=== PATIENT | male | born 2000 | race Caucasian/White ===

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

== ENCOUNTER 2024-02-27 16:05 | Emergency (ER) | payer MEDICAID, SELFPAY ==
[2024-02-27 16:09] VITALS: BP 152/85; PULSE 100; RESP 16; TEMP 36.8; O2SAT 96
--- NOTE | 2024-02-27 16:32 | ED_ITS ---
HPI - URI/Sore Throat General: Chief Complaint: Upper Respiratory Infection Stated Complaint: sore throat, cough Time Seen by Provider: 02/27/24 16:26 History of Present Illness: 23-year-old male patient comes in today for complaints of illness x 4 days. Patient reports nasal congestion, along with sore throat. Patient appears mildly unwell but not toxic. Patient does use tobacco, alcohol, and marijuana. Patient denies any routine medicine. Review of Systems General: Reports: 10 or more systems reviewed and unremarkable except in HPI and below ENMT: Reports: throat pain Resp: Denies: dyspnea PFSH ED PFSH: Surgical History (Updated 11/14/19 @ 11:28 by JESSICA Couch) H/O elbow surgery H/O wrist surgery Social History Smoking and tobacco/nicotine status: current every day tobacco/nicotine user Physical Exam Const: COMMON NORMALS: alert HENMT: COMMON NORMALS: normocephalic HEAD & SCALP: normocephalic THROAT: posterior oropharynx abnormal erythema Neck/C-Spine: COMMON NORMALS: full ROM Resp: COMMON NORMALS: normal respiratory effort and clear to auscultation bilaterally AUSCULTATION: clear to auscultation bilaterally Cardio: COMMON NORMALS: regular rate and regular rhythm RATE: regular rate RHYTHM: regular rhythm Back/Pelvis: COMMON NORMALS: thoracic and lumbar spine normal to inspection Extremity: COMMON NORMALS: full ROM Neuro: SENSORIUM/ORIENTATION: Yes alert Skin: COMMON NORMALS: turgor normal GENERAL SKIN EXAM: turgor normal Course Vital Signs: Vital signs: Vital Signs Temperature 98.2 F 02/27/24 16:09 Pulse Rate 91 02/27/24 17:28 Respiratory Rate 14 02/27/24 17:28 Blood Pressure 138/88 02/27/24 17:28 Pulse Oximetry 99 02/27/24 17:28 Oxygen Delivery Me thod Room Air 02/27/24 16:09 MDM - URI/Sore Throat Medical Decision Making 23-year-old male patient comes in today for complaints of nasal drainage, sore throat, and cough for 4 days. On exam patient appears mildly unwell but not toxic. Posterior pharynx is slightly erythematous. Vital signs are normal. Differential diagnosis includes upper respiratory infection, strep pharyngitis, viral syndrome. The patient most likely has a upper respiratory infection. Patient was given 10 mg of dexamethasone for his throat pain. Strep test was negative. Recommended [id number] medications with plenty of fluids. Family reports understanding agreed to plan. Lab Data Laboratory Results Group A Strep Rapid Negative (Negative) 02/27/24 16:40 No radiology studies performed this visit Discharge Plan Discharge Patient Disposition: Home Clinical Impression: Upper respiratory infection Qualifiers: URI type: unspecified viral URI Qualified Code(s): J06.9 - Acute upper respiratory infection, unspecified Condition: Stable Prescriptions: No Action No Known Home Medications Discharge Orders: Discharge ED (Routine); Ordered 02/27/24 Ordered By: Quintin Paris Discharge Diet: Usual diet Discharge Activity: Increase activity as tolerated Patient Instructions: Upper Respiratory Infection (ED) Activity Restrictions/Additional Instructions: Drink plenty water and fluids. Use acetaminophen and ibuprofen for pain. Follow-up with primary care for further instructions. Return to ED for new concerns. Stand Alone Forms: Work/School Release Coding Level of Care Code ED Nautical Instrument Mechanic for Bola Adhikari
[2024-02-27] MEDS: dexamethasone 10 mg/mL INJ IM (16:59)
[2024-02-27 17:15] LABS: Rapid Strep A Test Negative (Negative)
[2024-02-27 17:28] VITALS: BP 138/88; PULSE 91; RESP 14; O2SAT 99
== END 2024-02-27 17:28 | disposition home or self-care (01) ==
PROVIDERS: Emergency Provider Nurse Practitioner Family
DX: J06.9 Acute upper respiratory infection, unspecified (principal); Z72.0 Tobacco use
CPT/HCPCS: 87081; 87880; 96372; 99284; J1100